=== PATIENT | female | born 1955 ===

== ENCOUNTER → 2025-01-30 16:04 | Outpatient (REF) | payer OTHER, SELFPAY | LOC: RAD 16:04 | PROVIDERS: ATTENDING PHYSICIAN Specialist; FAMILY PHYSICIAN Nurse Practitioner Family | DX: N20.0 Calculus of kidney (principal) | CPT/HCPCS: 74018 ==

== ENCOUNTER 2025-02-24 06:22 | Day surgery (SDC) | payer OTHER, SELFPAY ==
[2025-02-13 08:58] LABS: Hematocrit 39.9 % (37.0-47.0); Hemoglobin 12.6 g/dL (12.0-16.0); Mean Corp Hgb Conc. 31.6 g/dL (33.0-37.0); Mean Corpuscular Hgb 28.8 pg (27.0-31.0); Mean Corpuscular Volume 91.1 fL (81.0-99.0); Mean Platelet Volume 10.1 fL (7.4-10.4); Platelet Count 295 10^3/uL (130-400); Red Blood Cell Count 4.38 10^6/uL (4.20-5.40); Red Cell Dist. Width 12.5 % (11.5-14.5); White Blood Cell Count 10.9 10^3/uL (4.8-10.8)
[2025-02-13 09:38] LABS: Blood Urea Nitrogen 13 mg/dl (7-17); Calcium 9.6 mg/dl (8.4-10.2); Carbon Dioxide 29 mmol/L (22-30); Chloride 104 mmol/L (98-107); Glucose 90 mg/dl (70-99); Sodium 143 mmol/L (135-145); eGFR > 60.00
[2025-02-13 13:06] VITALS: BMI 25.0
--- NOTE | 2025-02-13 14:30 | PTCARENOTE ---
Abn ECG, Dr. Ritchie made aware, no further interventions requested, patient 'Ok if stable'.
[2025-02-24] VITALS (9 sets, daily range): BP systolic 132–152; BP diastolic 69–90; BMI 23.8
[2025-02-24] MEDS: NORMOSOL-R/PLASMALYTE-A 1000 IV (08:35)
--- NOTE | 2025-02-24 08:36 | PTCARENOTE ---
Patient has bracelets on that will not come off. Anesthesia made aware. Anesthesia also aware that patient rates high for DVT risk. No further orders.
[2025-02-24 08:37] LABS: Urine Albumin 2+ (Neg - Trace); Urine Bilirubin Negative (Negative); Urine Character Clear (Clear); Urine Color Yellow; Urine Glucose Negative (Negative); Urine Ketone Negative (Negative); Urine Leukocyte 3+ (Negative); Urine Nitrite Positive (Negative); Urine Occult Blood 4+ (Negative); Urine Specific Gravity 1.005 (<1.030); Urine Urobilinogen Negative (Neg - 1+)
[2025-02-24 08:51] LABS: Urine Squamous Cell 0-2 /LPF (Few)
[2025-02-24 08:52] LABS: Urine Bacteria Few (Negative)
--- NOTE | 2025-02-24 10:52 | PTCARENOTE ---
Language line used to interpret and confirm the surgery patient is having.
[2025-02-24] MEDS: Pyridium 200 MG PO (12:12)
[2025-02-24] MEDS: DETROL LA 4 MG PO (12:12)
[2025-02-24] MEDS: ZOFRAN 4 MG IV (12:46)
== END 2025-02-24 14:06 | disposition home or self-care (01) ==
LOC: SDS 06:22
PROVIDERS: ATTENDING PHYSICIAN Specialist; FAMILY PHYSICIAN Nurse Practitioner Family
DX: N13.5 Crossing vessel and stricture of ureter without hydronephrosis (principal); N20.0 Calculus of kidney; Z87.440 Personal history of urinary (tract) infections
CPT/HCPCS: 52356; 74018; 76000; 80048; 81003; 81015; 82365; 85027; 87086; 93005; C1894; C2617; J1580